=== PATIENT | female | born 1990 | race African-American/Black ===

== ENCOUNTER 2016-08-23 09:55 | Emergency (ER) | payer MEDICAID ==
[2016-08-23] MEDS ORDERED: ACETAMINOPHEN 325 MG TABLET PO ONE (13:03)
--- NOTE | 2016-08-23 13:04 | ER Document Report ---
ED General - General Chief Complaint: Abdominal Pain Stated Complaint: ABDOMINAL PAIN Notes: The patient is a 26-year-old female, , presents with bilateral adnexa cramping. Her last menstrual period was 6 weeks ago. She does not know she is . In addition, she is having bilateral lower foot pain for the past day. She denies vaginal bleeding, vaginal discharge, dysuria, flank pain, nausea, vomiting, rash or leg swelling. TRAVEL OUTSIDE OF THE [place] IN LAST 30 DAYS: No - Related Data Allergies/Adverse Reactions: peanut butter Allergy (Intermediate, Uncoded 08/23/16 09:58) Facial swelling tomato sauce Allergy (Intermediate, Uncoded 08/23/16 09:58) tonsil swelling Past Medical History - General Information source: Patient - Social History Smoking Status: Current Every Day Smoker Chew tobacco use (# tins/day): No Frequency of alcohol use: None Drug Abuse: None Family History: CAD, CVA, Hyperlipidemia, Hypertension Patient has suicidal ideation: No Patient has homicidal ideation: No - Past Medical History Cardiac Medical History: Reports: Hx Hypertension Renal/ Medical History: Denies: Hx Peritoneal Dialysis Psychiatric Medical History: Reports: Hx Depression Past Surgical History: Reports: Hx Section, Hx Tubal Ligation - Immunizations Immunizations up to date: Yes Hx Diphtheria, Pertussis, Tetanus Vaccination: Yes - 03/29/13 Review of Systems - Review of Systems Notes: REVIEW OF SYSTEMS: CONSTITUTIONAL: -fevers, -chills EENT: -eye pain, -difficulty swallowing, -nasal congestion CARDIOVASCULAR:-chest pain, -syncope. RESPIRATORY: -cough, -SOB GASTROINTESTINAL: -abdominal pain, - nausea, -vomiting, -diarrhea GENITOURINARY: +b/l adenxa pain, -dysuria, -hematuria MUSCULOSKELETAL: -back pain, -neck pain SKIN: -rash or skin lesions. HEMATOLOGIC: -easy bruising or bleeding. LYMPHATIC: -swollen, enlarged glands. NEUROLOGICAL: -altered mental status or loss of consciousness, -headache, - neurologic symptoms PSYCHIATRIC: -anxiety, -depression. ALL OTHER SYSTEMS REVIEWED AND NEGATIVE. Physical Exam - Vital signs Vitals: Temp Pulse Resp BP Pulse Ox 99.9 F 120 H 16 152/114 H 100 08/23/16 09:59 08/23/16 09:59 08/23/16 09:59 08/23/16 09:59 08/23/16 09:59 - Notes Notes: PHYSICAL EXAMINATION: GENERAL: Well-appearing, well-nourished and in no acute distress. HEAD: Atraumatic, normocephalic. EYES: Pupils equal round and reactive to light, extraocular movements intact, sclera anicteric, conjunctiva are normal. ENT: nares patent, oropharynx clear without exudates. Moist mucous membranes. NECK: Normal range of motion, supple without lymphadenopathy LUNGS: Breath sounds clear to auscultation bilaterally and equal. No wheezes rales or rhonchi. HEART: Regular rate and rhythm without murmurs ABDOMEN: Soft, nontender, normoactive bowel sounds. No guarding, no rebound. No masses appreciated. EXTREMITIES: Normal range of motion, no pitting or edema. No cyanosis. NEUROLOGICAL: Cranial nerves grossly intact. Normal speech, normal gait. Normal sensory, motor, and reflex exams. PSYCH: Normal mood, normal affect. SKIN: Warm, Dry, normal turgor, no rashes or lesions noted. Course - Re-evaluation Re-evalutation: Initial concern for ovarian torsion or ectopic when patient says that she was having bilateral adnexa cramping. Her symptoms quickly resolved after Tylenol and ultrasound does not show any evidence of left ovarian torsion. Right ovary was unable to be visualized, but her symptoms are no longer present. She is not and urinalysis does not show any evidence of UTI. Told her to follow-up with gynecology. Told her to continue Motrin and Tylenol for any cramping. Repeat abdominal exam is completely nontender. Her tachycardia resolved and she is 90 sinus rhythm on discharge. Given strict return precautions and she understands. - Vital Signs Vital signs: Temp Pulse Resp BP Pulse Ox 98.3 F 97 23 H 130/81 H 98 08/23/16 15:14 08/23/16 15:14 08/23/16 15:14 08/23/16 15:14 08/23/16 15:14 - Laboratory Laboratory results interpreted by me: 08/23/16 13:20 Urine Protein 30 H Urine Blood MODERATE H Urine Ascorbic Acid 40 H Discharge - Discharge Clinical Impression: Pelvic pain Condition: Good Disposition: HOME, SELF-CARE Additional Instructions: ABDOMINAL PAIN: There are many causes of abdominal pain. Pain can mean a serious problem requiring surgery (such as appendicitis). It can also be an innocent problem that goes away on its own (such as a viral infection). Often, time must pass to determine the cause of pain. The physician does not feel that hospitalization is necessary, at present. Things may change within the next 24 hours. Call the doctor or come back for re- examination if any problems occur, such as: (1) Pain that becomes more severe, steady, or becomes concentrated in one specific area. Also, pain that is more severe with movement or coughing. (2) Vomiting that persists or becomes more frequent. (3) Blood in the vomitus, urine, or bowel movements. Blood in the stool may have a tarry or black appearance. (4) Shaking chills or fever greater than 100 degrees F. (5) The abdomen becomes more distended or swollen. (6) Bowel movements cease. (7) Failure to improve as expected. NORMAL EXAM AND WORKUP: At this time, your examination and workup show no significant abnormality. No significant abnormal physical findings are noted. All laboratory, EKG, and imaging (x-ray, CT scans, ultrasound) studies that were ordered show no significant abnormality. Although your examination and all studies that were ordered showed no significant abnormal finding, there are no examinations and no studies that are 100% accurate. There is always the possibility that some abnormality could exist and not be detected with physical examination or within the limits and capabilities of laboratory and other studies. You should return or follow up as you were instructed on your visit today for further evaluation if your symptoms do not resolve. FOLLOW-UP CARE: If you have been referred to a physician for follow-up care, call the physician s office for an appointment as you were instructed or within the next two days. If you experience worsening or a significant change in your symptoms, notify the physician immediately or return to the Emergency Department at any time for re-evaluation. Referrals: KELLY MARTINEZ MD [Primary Care Provider] - Follow up as needed MICHELLE COWAN MD [ACTIVE STAFF] - Follow up as needed
[2016-08-23 13:41] LABS: APPEARANCE,URINE SLIGHTLY-CLOUDY; BILIRUBIN,URINE NEGATIVE (NEGATIVE); GLUCOSE, URINE NEGATIVE (NEGATIVE); KETONES,URINE NEGATIVE (NEGATIVE); LEUKOCYTE ESTERASE,URINE NEGATIVE (NEGATIVE); NITRITE,URINE NEGATIVE (NEGATIVE); PROTEIN,URINE 30 mg/dL (NEGATIVE); URINE SPECIFIC GRAVITY 1.023; UROBILINOGEN,URINE NEGATIVE mg/dL (<2.0)
[2016-08-23 15:16] VITALS: BP 130/81
== END 2016-08-23 15:28 | disposition home or self-care (01) ==
LOC: ER 09:55
DX: R10.2 Pelvic and perineal pain (principal); M79.671 Pain in right foot; M79.672 Pain in left foot; I10 Essential (primary) hypertension; F17.200 Nicotine dependence, unspecified, uncomplicated; Z91.010 Allergy to peanuts; Z91.018 Allergy to other foods
CPT/HCPCS: 99284; 81025; 81001; 76830; 93976; J3490

== ENCOUNTER 2016-12-23 16:46 | Emergency (ER) | payer MEDICAID ==
--- NOTE | 2016-12-23 18:06 | ER Document Report ---
HPI - HPI Patient complains to provider of: Sore throat Onset: Yesterday Onset/Duration: Gradual Pain Level: 5 Context: 26-year-old obese female complaining of sore throat with odynophagia. No fever. No runny nose or cough. No abdominal pain. Associated Symptoms: None Exacerbated by: Other - Swallowing Relieved by: Denies - ROS ROS below otherwise negative: Yes Systems Reviewed and Negative: Yes All other systems reviewed and negative - REPRODUCTIVE Reproductive: DENIES: : - DERM Skin Color: Normal Past Medical History - General Information source: Patient - Social History Smoking Status: Unknown if Ever Smoked Frequency of alcohol use: None Drug Abuse: None Lives with: Spouse/Significant other Family History: CAD, CVA, Hyperlipidemia, Hypertension Patient has suicidal ideation: No Patient has homicidal ideation: No - Past Medical History Cardiac Medical History: Reports: Hx Hypertension - Does not want to take medication Renal/ Medical History: Denies: Hx Peritoneal Dialysis Psychiatric Medical History: Reports: Hx Depression Past Surgical History: Reports: Hx Section, Hx Tubal Ligation - Immunizations Immunizations up to date: Yes Hx Diphtheria, Pertussis, Tetanus Vaccination: Yes - 03/29/13 Vertical Provider Document - CONSTITUTIONAL Agree With Documented VS: No - [facility] Exam Limitations: No Limitations General Appearance: No Apparent Distress Notes: hypertensive blood pressure readning with mild tachycardia at [facility]. - INFECTION CONTROL TRAVEL OUTSIDE OF THE [place] IN LAST 30 DAYS: No - HEENT HEENT: Normocephalic, Pharyngeal Erythema - Very minimal. negative: Conjuctival Injection, Tympanic Membrane Red - NECK Neck: Supple. negative: Lymphadenopathy-Left, Lymphadenopathy-Right - RESPIRATORY Respiratory: Breath Sounds Normal, No Respiratory Distress O2 Sat by Pulse Oximetry: 84 - CARDIOVASCULAR Cardiovascular: Regular Rate, Regular Rhythm - GI/ABDOMEN Gastrointestinal: Abdomen Soft, Abdomen Non-Tender - NEURO Level of Consciousness: Awake, Alert, Appropriate - DERM Integumentary: Warm, Dry, No Rash Course - Re-evaluation Re-evalutation: 12/23/16 18:35 Patient does not want a test offered she did take Motrin last night for pain. She states she cannot take Tylenol because her doctor says that it may affect her blood pressure. advised To use Chloraseptic spray or throat lozenges. She will call me for the throat culture results from the rapid strep is negative. I told her we will start her on some penicillin pending the throat culture. 12/23/16 18:36 I captureed the vitals at 18:05 and it pulled up the 84% pulse ox [facility]. No one checked the pulse ox at 18:05. Will have pt see dr. kyle for repeat blood pressure checks 12/23/16 18:45 pt asking for pencillin shot instead of the pills which I agreed to. 12/23/16 18:55 no manual large cuff, dinamap with large cuff 154/108, explained to her to see dr. kyle and get back on the HCTZ which she said did not bother her like the other medications.. - Vital Signs Vital signs: Temp Pulse Resp BP Pulse Ox 98.6 F 112 H 148/105 H 84 L 12/23/16 16:50 12/23/16 16:50 12/23/16 16:50 12/23/16 16:50 Discharge - Discharge Clinical Impression: Sore throat, elevated blood pressure reading Condition: Good Disposition: HOME, SELF-CARE Instructions: Sore Throat ([facility]), Penicillins ([facility]) Additional Instructions: salt water gargles choloraseptic spray throat lozenges call me saturday after 10 am for the throat culture results [phone] Please complete the patient satisfaction survey if you get one, and return it.. If you do not receive a survey, then you can go to the [facility] website, [email or web address] and place your comments about your very good care. Thank you very much. It was a pleasure being your medical provider today. Prescriptions: Penicillin V Potassium [Penicillin Vk 500 mg Tablet] 500 mg PO QID #40 tablet Referrals: KELLY KYLE MD [Primary Care Provider] - Follow up in 3-5 days (for blood pressure recheck)
[2016-12-23] MEDS ORDERED: PENICILLIN V POTASSIUM 500 MG TABLET PO ONE (18:35)
[2016-12-23] MEDS ORDERED: PENICILLIN G BENZATHINE 1.2 MILLION UNIT/2 ML DISP.SYRIN IM ONE (18:46)
[2016-12-23 18:53] VITALS: BP 140/105
== END 2016-12-23 19:12 | disposition home or self-care (01) ==
LOC: ER 16:46
DX: J02.9 Acute pharyngitis, unspecified (principal); R03.0 Elevated blood-pressure reading, without diagnosis of hypertension; E66.9 Obesity, unspecified; R13.10 Dysphagia, unspecified; R00.0 Tachycardia, unspecified; Z82.49 Family history of ischemic heart disease and other diseases of the circulatory system; Z68.43 Body mass index [BMI] 50.0-59.9, adult
CPT/HCPCS: 99283; 96372; 87070; 87880; J0561

== ENCOUNTER 2017-05-08 13:25 | Emergency (ER) | payer MEDICAID ==
[2017-05-08 13:44] VITALS: BP 149/96
--- NOTE | 2017-05-08 14:11 | ER Document Report ---
ED Medical Screen (RME) - General Chief Complaint: Chest Pain Stated Complaint: CHEST PAIN Time Seen by Provider: 05/08/17 14:06 Notes: This 26-year-old female patient comes emergency room complaining of chest pain for last one half hours. It started while she is driving. His left anterior chest and sternum region. The only thing that she says makes it worse is yelling. As curfew she was yelling out in the last hour and a half and she said her children while she was in the car driving. She states she does get this pain periodically but it never lasts this long. She does not know when her last menstrual period was but her tubes were tied. She does have history of hypertension and she claims enlarged heart. She quit taking her blood pressure medications a month ago. She does have a primary care provider. I have greeted and performed a rapid initial assessment of this patient. A comprehensive ED assessment and evaluation of the patient, analysis of test results and completion of the medical decision making process will be conducted by additional ED providers. TRAVEL OUTSIDE OF THE [place] IN LAST 30 DAYS: No - Related Data Allergies/Adverse Reactions: peanut butter Allergy (Intermediate, Uncoded 08/23/16 09:58) Facial swelling tomato sauce Allergy (Intermediate, Uncoded 08/23/16 09:58) tonsil swelling Past Medical History - Past Medical History Cardiac Medical History: Reports: Hx Hypertension - Does not want to take medication Renal/ Medical History: Denies: Hx Peritoneal Dialysis Psychiatric Medical History: Reports: Hx Depression Past Surgical History: Reports: Hx Section, Hx Tubal Ligation - Immunizations Immunizations up to date: Yes Hx Diphtheria, Pertussis, Tetanus Vaccination: Yes - 03/29/13 Physical Exam - Vital signs Vitals: Temp Pulse Resp BP Pulse Ox 98.7 F 102 H 18 149/96 H 98 05/08/17 13:42 05/08/17 13:42 05/08/17 13:42 05/08/17 13:42 05/08/17 13:42 Course - Vital Signs Vital signs: Temp Pulse Resp BP Pulse Ox 98.7 F 102 H 18 149/96 H 98 05/08/17 13:42 05/08/17 13:42 05/08/17 13:42 05/08/17 13:42 05/08/17 13:42
[2017-05-08 14:33] LABS: ABSOLUTE BASOPHILS # (AUTO) 0.1 10^3/uL (0.0-0.2); ABSOLUTE EOSINOPHILS # (AUTO) 0.2 10^3/uL (0.0-0.6); ABSOLUTE LYMPHOCYTES (AUTO) 2.6 10^3/uL (0.5-4.7); ABSOLUTE MONOCYTES (AUTO) 0.7 10^3/uL (0.1-1.4); ABSOLUTE NEUT (AUTO) 7.7 10^3/uL (1.7-8.2); BASOPHILS % (AUTO) 0.6 % (0-2); EOSINOPHILS % (AUTO) 1.8 % (0-6); HEMATOCRIT 38.7 % (36.0-47.0); HEMOGLOBIN 12.6 g/dL (12.0-15.5); HGB HCT DIFFERENCE -0.9; LYMPHOCYTES % (AUTO) 23.2 % (13-45); MEAN CORPUSCULAR HEMOGLOBIN 24.8 pg (27.0-33.4); MEAN CORPUSCULAR HGB CONC 32.6 g/dL (32.0-36.0); MEAN CORPUSCULAR VOLUME 76 fl (80-97); MONOCYTES % (AUTO) 6.5 % (3-13); RED BLOOD COUNT 5.08 10^6/uL (3.72-5.28); RED CELL DISTRIBUTION WIDTH 16.1 % (11.5-14.0); SEGMENTED NEUTROPHILS % (AUTO) 67.9 % (42-78); WHITE BLOOD COUNT 11.3 10^3/uL (4.0-10.5)
[2017-05-08 14:44] LABS: APPEARANCE,URINE CLOUDY; BILIRUBIN,URINE NEGATIVE (NEGATIVE); GLUCOSE, URINE NEGATIVE (NEGATIVE); KETONES,URINE NEGATIVE (NEGATIVE); LEUKOCYTE ESTERASE,URINE NEGATIVE (NEGATIVE); NITRITE,URINE NEGATIVE (NEGATIVE); PROTEIN,URINE NEGATIVE (NEGATIVE); UROBILINOGEN,URINE NEGATIVE mg/dL (<2.0)
[2017-05-08 14:54] LABS: ALANINE AMINOTRANSFERASE 32 U/L (9-52); ALBUMIN 4.1 g/dL (3.5-5.0); ALKALINE PHOSPHATASE 137 U/L (38-126); ANION GAP 11 (5-19); ASPARTATE AMINO TRANSFERASE 19 U/L (14-36); BILIRUBIN,DIRECT 0.3 mg/dL (0.0-0.4); BILIRUBIN,TOTAL 0.3 mg/dL (0.2-1.3); BLOOD UREA NITROGEN 11 mg/dL (7-20); CALCIUM 9.4 mg/dL (8.4-10.2); CARBON DIOXIDE 27 mmol/L (22-30); CHLORIDE 105 mmol/L (98-107); CREATININE RESULT 0.74 mg/dL (0.52-1.25); GLUCOSE 81 mg/dL (75-110); POTASSIUM 4.4 mmol/L (3.6-5.0); SODIUM 142.9 mmol/L (137-145); TOTAL PROTEIN 7.2 g/dL (6.3-8.2)
[2017-05-08 15:09] LABS: BACTERIA,URINE 2+ /HPF
--- NOTE | 2017-05-08 15:16 | ER Document Report ---
ED Cardiac - General Chief Complaint: Chest Pain Stated Complaint: CHEST PAIN Time Seen by Provider: 05/08/17 14:06 Notes: The patient is a 26-year-old female, past medical history hypertension (not taking her HCTZ), presents with 1 day of sternal chest pain that is worse when she yells at her kids. She has had this in the past and it resolved without any intervention. Patient said the pain is worse when she presses on her chest wall. She denies shortness of breath, hemoptysis, leg swelling, nausea, vomiting, fevers, cough, rash, headache or OCP use. TRAVEL OUTSIDE OF THE [place] IN LAST 30 DAYS: No - Related Data Allergies/Adverse Reactions: peanut butter Allergy (Intermediate, Uncoded 08/23/16 09:58) Facial swelling tomato sauce Allergy (Intermediate, Uncoded 08/23/16 09:58) tonsil swelling Past Medical History - General Information source: Patient - Social History Smoking Status: Current Every Day Smoker Chew tobacco use (# tins/day): No Frequency of alcohol use: None Drug Abuse: None Family History: CAD, CVA, Hyperlipidemia, Hypertension Patient has suicidal ideation: No Patient has homicidal ideation: No - Past Medical History Cardiac Medical History: Reports: Hx Hypertension - Does not want to take medication Renal/ Medical History: Denies: Hx Peritoneal Dialysis Psychiatric Medical History: Reports: Hx Depression Past Surgical History: Reports: Hx Section, Hx Tubal Ligation - Immunizations Immunizations up to date: Yes Hx Diphtheria, Pertussis, Tetanus Vaccination: Yes - 03/29/13 Review of Systems - Review of Systems Notes: REVIEW OF SYSTEMS: CONSTITUTIONAL: -fevers, -chills EENT: -eye pain, -difficulty swallowing, -nasal congestion CARDIOVASCULAR: +chest pain, -syncope. RESPIRATORY: -cough, -SOB GASTROINTESTINAL: -abdominal pain, -nausea, -vomiting, -diarrhea GENITOURINARY: -dysuria, -hematuria MUSCULOSKELETAL: -back pain, -neck pain SKIN: -rash or skin lesions. HEMATOLOGIC: -easy bruising or bleeding. LYMPHATIC: -swollen, enlarged glands. NEUROLOGICAL: -altered mental status or loss of consciousness, -headache, - neurologic symptoms PSYCHIATRIC: -anxiety, -depression. ALL OTHER SYSTEMS REVIEWED AND NEGATIVE. Physical Exam - Vital signs Vitals: Temp Pulse Resp BP Pulse Ox 98.7 F 102 H 18 149/96 H 98 05/08/17 13:42 05/08/17 13:42 05/08/17 13:42 05/08/17 13:42 05/08/17 13:42 - Notes Notes: PHYSICAL EXAMINATION: GENERAL: Well-appearing, well-nourished and in no acute distress. HEAD: Atraumatic, normocephalic. EYES: Pupils equal round and reactive to light, extraocular movements intact, sclera anicteric, conjunctiva are normal. ENT: nares patent, oropharynx clear without exudates. Moist mucous membranes. NECK: Normal range of motion, supple without lymphadenopathy LUNGS: Breath sounds clear to auscultation bilaterally and equal. No wheezes rales or rhonchi. HEART: Regular rate and rhythm without murmurs. Tenderness over mid-sternum. ABDOMEN: Soft, nontender, normoactive bowel sounds. No guarding, no rebound. No masses appreciated. EXTREMITIES: Normal range of motion, no pitting or edema. No cyanosis. NEUROLOGICAL: Cranial nerves grossly intact. Normal speech, normal gait. Normal sensory and motor exams. PSYCH: Normal mood, normal affect. SKIN: Warm, Dry, normal turgor, no rashes or lesions noted. Course - Re-evaluation Re-evalutation: Patient appears well. Troponin, EKG and rest of blood work are unremarkable. She is low risk for DVT, so d-dimer sent because of initial tachycardia. This is also negative. She has an appointment with Dr. Martinez tomorrow morning and will follow-up. Her HEART score is 2. - Vital Signs Vital signs: Temp Pulse Resp BP Pulse Ox 98.7 F 102 H 18 149/96 H 98 05/08/17 13:42 05/08/17 13:42 05/08/17 13:42 05/08/17 13:42 05/08/17 13:42 - Laboratory Result Diagrams: 05/08/17 14:20 05/08/17 14:20 Laboratory results interpreted by me: 05/08/17 05/08/17 05/08/17 14:20 14:20 14:20 WBC 11.3 H MCV 76 L MCH 24.8 L RDW 16.1 H Alkaline Phosphatase 137 H Urine Ascorbic Acid 40 H - Diagnostic Test Radiology reviewed: Image reviewed, Reports reviewed Radiology results interpreted by me: CXR: NAD - EKG Interpretation by Me EKG shows normal: Sinus rhythm, [place], Intervals, QRS Complexes, ST-T Waves Rate: Tachycardia - HR 100 Discharge - Discharge Clinical Impression: Chest pain Qualifiers: Chest pain type: unspecified Qualified Code(s): R07.9 - Chest pain, unspecified Condition: Stable Disposition: HOME, SELF-CARE Additional Instructions: Follow-up with your primary care physician tomorrow for further evaluation and treatment. CHEST PAIN OF UNCLEAR CAUSE: The exact cause of your chest pain isn't clear. Fortunately, there is no evidence of a dangerous medical condition. Further testing may be required to find the source of the pain. Most often, we find that this pain is coming from the chest wall -- the muscles or rib joints in the chest. But chest pain can come from the lung and lung lining, the esophagus, the heart valves or heart lining, and even the stomach or gallbladder. Rest. Eat lightly until the pain is gone. We may prescribe medicine for pain and inflammation. You should call the physician immediately if the pain radiates to the shoulder, jaw or arms; if you start to run a fever or develop a cough; or if you develop shortness of breath, or other new or alarming symptoms. NORMAL EXAM AND WORKUP: At this time, your examination and workup show no significant abnormality. No significant abnormal physical findings were noted. All laboratory, EKG, and imaging (x-ray, CT scans, ultrasound) studies that were ordered show no significant abnormality. Although your examination and all studies that were ordered showed no significant abnormal finding, there are no examinations and no studies that are 100% accurate. There is always the possibility that some abnormality could exist and not be detected with physical examination or within the limits and capabilities of laboratory and other studies. You should return or follow up as you were instructed on your visit today for further evaluation if your symptoms do not resolve. CHEST WALL PAIN: Your chest pain may be coming from the chest wall. This is often caused by straining the muscles or joints in the chest during physical activity, direct trauma, coughing, or vigorous vomiting. Persons with arthritis are especially prone to this type of pain, due to inflammation of the cartilage joints near the breast bone. Occasionally, no cause can be found. Rest from strenuous physical activity. This kind of chest pain is usually made worse by movement of the chest. Depending on the symptoms, we may prescribe medicine for pain, muscle relaxation, and antiinflammatory effects. If the pain is new, and seems to be due to muscle strain, cold packs can help. Otherwise, apply gentle warmth to the painful area for 15 minutes every hour or two. You should call contact the doctor immediately if things change. Further evaluation is needed if you develop a fever or cough, if the nature of the pain changes, or if you become short of breath. ANGINA EPISODE: Your physician has diagnosed the pain you experienced as an episode of angina. Angina occurs when a portion of the heart muscle temporarily lacks oxygen. It does not cause any permanent heart damage, but serves as a warning. Hospitalization is not necessary now. Evaluation of your cardiac condition , and medical therapy for angina will be necessary. It's important you be sure to keep all appointments and take medication exactly as prescribed. Angina is usually treated with a type of "nitrate" medication. This is available as ointment, pills, or sublingual (under the tongue) tablets. Depending on your clinical situation, other medications may be added to help control angina. These may include beta blockers or calcium blockers. If episodes of angina are occurring with increased frequency, or if chest pain lasts longer than 15 minutes or does not respond to nitroglycerin, you must seek emergency medical care immediately. ACID REFLUX DISEASE (GERD): Gastro-Esophageal Reflux Disease (GERD) is caused by stomach acid refluxing back up into the esophagus. The valve at the end of the esophagus may be weak. This is common in persons with a hiatal hernia. GERD symptoms can include indigestion, chest pain, heartburn, or food "sticking." Certain foods, alcohol, and aspirin can make GERD worse. Treatment depends on the severity. Usually, antacids or acid-suppressing medicines are used. When the esophagus is acutely inflamed, the physician will often prescribe membrane-protective drugs such as Carafate. Some patients benefit from medication such as Reglan that tightens the valve at the top of the stomach. Avoid those foods that bring on your symptoms. For many people, these foods are coffee, chocolate, onions, garlic, and carbonated drinks. Don't use alcohol, aspirin, caffeine, or tobacco. Don't eat late at night -- within 4 hours of bedtime. Don't over-eat. If necessary, elevate the head of your bed about 4 inches so that stomach acid will not roll up into your esophagus. Call the doctor if you develop severe chest pain, inability to swallow fluids, fever, or worsening symptoms. FOLLOW-UP CARE: If you have been referred to a physician for follow-up care, call the physician s office for an appointment as you were instructed or within the next two days. If you experience worsening or a significant change in your symptoms, notify the physician immediately or return to the Emergency Department at any time for re-evaluation. Forms: Elevated Blood Pressure Referrals: KELLY MARTINEZ MD [Primary Care Provider] - Follow up as needed
--- NOTE | 2017-05-08 15:53 | RADIOLOGY REPORT (SQ) ---
EXAM DESCRIPTION: CHEST PA/LAT COMPLETED DATE/TIME: 05/08/2017 3:38 pm REASON FOR STUDY: chest pain COMPARISON: 03/29/2016 EXAM PARAMETERS: NUMBER OF VIEWS: two views TECHNIQUE: Digital Frontal and Lateral radiographic views of the chest acquired. RADIATION DOSE: NA LIMITATIONS: none FINDINGS: LUNGS AND PLEURA: No opacities, masses or pneumothorax. No pleural effusion. MEDIASTINUM AND HILAR STRUCTURES: No masses or contour abnormalities. HEART AND VASCULAR STRUCTURES: Heart normal size. No evidence for failure. BONES: No acute findings. HARDWARE: None in the chest. OTHER: No other significant finding. IMPRESSION: NO SIGNIFICANT RADIOGRAPHIC FINDING IN THE CHEST. TECHNICAL DOCUMENTATION: JOB ID: [id number] [employer]- All Rights Reserved
--- NOTE | 2017-05-09 09:23 | EKG REPORT ---
SEVERITY:- BORDERLINE ECG - SINUS TACHYCARDIA BORDERLINE T WAVE ABNORMALITIES : Confirmed by: Cesar Kaur 09-May-2017 09:22:54
== END 2017-05-08 18:12 | disposition home or self-care (01) ==
LOC: ER 13:25
DX: R07.9 Chest pain, unspecified (principal); R00.0 Tachycardia, unspecified; I10 Essential (primary) hypertension; T50.2X6A Underdosing of carbonic-anhydrase inhibitors, benzothiadiazides and other diuretics, initial encounter; Z91.128 Patient's intentional underdosing of medication regimen for other reason; Z91.14 Patient's other noncompliance with medication regimen; F17.200 Nicotine dependence, unspecified, uncomplicated; Z91.010 Allergy to peanuts; Z91.018 Allergy to other foods; Z82.49 Family history of ischemic heart disease and other diseases of the circulatory system
CPT/HCPCS: 36415; 71020; 80053; 81001; 82550; 84484; 84703; 85025; 85379; 93005; 93010; 99285

== ENCOUNTER 2017-06-19 06:15 | Emergency (ER) | payer MEDICAID ==
[2017-06-19 06:24] VITALS: BP 161/95
[2017-06-19] MEDS ORDERED: DIPHENHYDRAMINE HCL 50 MG CAPSULE PO ONE (06:34)
[2017-06-19] MEDS ORDERED: DEXAMETHASONE 4 MG TABLET PO ONE (06:39)
--- NOTE | 2017-06-19 06:44 | ER Document Report ---
ED Skin Rash/Insect Bite/Abscs - General Chief Complaint: Itching Stated Complaint: ITCHING Time Seen by Provider: 06/19/17 06:32 Notes: The patient is a 27-year-old female, past medical history hypertension, presents with 12 hours of a diffuse pruritic rash. She said her doctor told her not to take any medications, so she did not take Benadryl. Patient denies new soaps, new detergents, new medications or new foods. She denies difficulty swallowing, wheezing, nausea, vomiting, fevers or tongue swelling. TRAVEL OUTSIDE OF THE [place] IN LAST 30 DAYS: No - Related Data Allergies/Adverse Reactions: peanut butter Allergy (Intermediate, Uncoded 08/23/16 09:58) Facial swelling tomato sauce Allergy (Intermediate, Uncoded 08/23/16 09:58) tonsil swelling Past Medical History - General Information source: Patient - Social History Smoking Status: Unknown if Ever Smoked Family History: CAD, CVA, Hyperlipidemia, Hypertension - Past Medical History Cardiac Medical History: Reports: Hx Hypertension - Does not want to take medication Renal/ Medical History: Denies: Hx Peritoneal Dialysis Psychiatric Medical History: Reports: Hx Depression Past Surgical History: Reports: Hx Section, Hx Tubal Ligation - Immunizations Immunizations up to date: Yes Hx Diphtheria, Pertussis, Tetanus Vaccination: Yes - 03/29/13 Review of Systems - Review of Systems Notes: REVIEW OF SYSTEMS: CONSTITUTIONAL: -fevers, -chills EENT: -eye pain, -difficulty swallowing, -nasal congestion CARDIOVASCULAR: -chest pain, -syncope. RESPIRATORY: -cough, -SOB GASTROINTESTINAL: -abdominal pain, -nausea, -vomiting, -diarrhea GENITOURINARY: -dysuria, -hematuria MUSCULOSKELETAL: -back pain, -neck pain SKIN: +pruritic rash HEMATOLOGIC: -easy bruising or bleeding. LYMPHATIC: -swollen, enlarged glands. NEUROLOGICAL: -altered mental status or loss of consciousness, -headache, - neurologic symptoms PSYCHIATRIC: -anxiety, -depression. ALL OTHER SYSTEMS REVIEWED AND NEGATIVE. Physical Exam - Vital signs Vitals: Temp Pulse Resp BP Pulse Ox 98.5 F 102 H 20 161/95 H 98 06/19/17 06:23 06/19/17 06:23 06/19/17 06:23 06/19/17 06:23 06/19/17 06:23 - Notes Notes: PHYSICAL EXAMINATION: GENERAL: Well-appearing, well-nourished and in no acute distress. HEAD: Atraumatic, normocephalic. EYES: Pupils equal round and reactive to light, extraocular movements intact, sclera anicteric, conjunctiva are normal. ENT: nares patent, oropharynx clear without exudates. Moist mucous membranes. NECK: Normal range of motion, supple without lymphadenopathy LUNGS: Breath sounds clear to auscultation bilaterally and equal. No wheezes rales or rhonchi. HEART: Regular rate and rhythm without murmurs ABDOMEN: Soft, nontender, normoactive bowel sounds. No guarding, no rebound. No masses appreciated. EXTREMITIES: Normal range of motion, no pitting or edema. No cyanosis. NEUROLOGICAL: Cranial nerves grossly intact. Normal speech, normal gait. Normal sensory and motor exams. PSYCH: Normal mood, normal affect. SKIN: Diffuse pruritic urticarial rash on legs and back. Course - Re-evaluation Re-evalutation: Patient has no signs of anaphylaxis at this time. Unsure what is causing her pruritus as she has not had any new triggers. We will treat her with dose of Decadron and Benadryl to help control her symptoms with follow-up at her primary care physician. Given strict return precautions and she understands. - Vital Signs Vital signs: Temp Pulse Resp BP Pulse Ox 98.5 F 102 H 20 161/95 H 98 06/19/17 06:23 06/19/17 06:23 06/19/17 06:23 06/19/17 06:23 06/19/17 06:23 Discharge - Discharge Clinical Impression: Urticaria Condition: Stable Disposition: HOME, SELF-CARE Additional Instructions: ACUTE ALLERGIC REACTION: Your symptoms are due to an allergic reaction. Allergy can cause hives, swelling of the hands, feet, and face, hoarseness, and difficulty swallowing or breathing. It may be due to exposure to medication, animal dander, foods, infection, or insect bites. Medication is a common cause, even when prior use of this same medication caused no problems. Acute treatment may include adrenalin and antihistamines. Usually, the specific allergic agent can't be identified unless repeated episodes occur. Home treatment includes the following: (1) Stop any suspicious medications. This will be discussed with you. (2) Oral antihistamines for the next four to five days. Example, diphenhydramine (Benadryl) every four hours. (3) You may also use cimetidine (Tagamet), ranitidine (Zantac), or famotidine ( Pepcid) every four hours if diphenhydramine is not controlling itching and hives. (4) Avoid aspirin until the hives completely disappear. (5) Avoid hot baths or showers until the hives are completely gone. Call the doctor if faintness, difficulty swallowing, tightness in the chest , or wheezing occurs. STEROID MEDICATION: You have been given a medicine of the cortisone/steroid class. This medication is used to control inflammation or allergy. It is usually only given for a short period of time, until the acute process subsides. There are usually no side effects from short-term use of cortisone-like medications. Some persons feel an increased sense of well-being and are not sleepy at bedtime. Long-term use of cortisone medications is best avoided, unless required for a severe condition. If your condition does not remit, or relapses after the course of corticosteroid medication, you should consult your physician. ANTIHISTAMINES: An antihistamine has been given and/or prescribed to control your symptoms. Antihistamines are used for many reasons, including itching, watering eyes, runny nose, allergic swelling, hives, and insect stings. Antihistamines may cause drowsiness, especially with the first dose. Do not operate machinery or drive while under the effects of the medication. Other common side effects include dry mouth and eyes. In older persons, antihistamines can occasionally cause urinary retention, constipation, and trouble focusing the eyes. Do not combine the medication with alcohol, or with any other medication without talking to your doctor. USE OF DIPHENHYDRAMINE: The use of diphenhydramine (Benadryl) has been recommended to control allergic symptoms. The 25 mg strength is available over- the-counter, as well as the elixir. This antihistamine is used for many symptoms. It's useful for itching, watering eyes and nose, allergic swelling, hives, and insect stings. The medication can be repeated four times daily. Age Elixir (12.5 mg/tsp) 25 mg pill 2-3 yr 1/2 tsp 4-8 yr 1 tsp 9-14 yr 2 tsp one tab adult 1-2 tabs Antihistamines may cause drowsiness, especially with the first dose. Do not operate machinery or drive while under the effects of the medication. Do not combine the medication with alcohol, or with any other medication without talking to your doctor. FOLLOW-UP CARE: If you have been referred to a physician for follow-up care, call the physician s office for an appointment as you were instructed or within the next two days. If you experience worsening or a significant change in your symptoms, notify the physician immediately or return to the Emergency Department at any time for re-evaluation. Forms: Elevated Blood Pressure
== END 2017-06-19 06:50 | disposition home or self-care (01) ==
LOC: ER 06:15
DX: L50.9 Urticaria, unspecified (principal); L29.9 Pruritus, unspecified; I10 Essential (primary) hypertension
CPT/HCPCS: 99282; J3490 ×2

== ENCOUNTER 2017-07-14 23:40 | Emergency (ER) | payer MEDICAID ==
[2017-07-15] MEDS ORDERED: HYDROCODONE/ACETAMINOPHEN 5-325 MG (6 TAB/ER DISP) PO PRN (00:28)
[2017-07-15] MEDS ORDERED: HYDROCODONE/ACETAMINOPHEN 5-325 MG TABLET PO ONE (00:28)
--- NOTE | 2017-07-15 00:28 | ER Document Report ---
ED Oral Problem - General Chief Complaint: Toothache Stated Complaint: MOUTH PAIN Time Seen by Provider: 07/15/17 00:11 Mode of Arrival: Ambulatory Information source: Patient Notes: Patient is a 27-year-old female who presents to the ER today for right upper and lower tooth pain 2 days. Patient states that she has not dentist appointment but it is not until 08 August. She admits to swelling to the area but denies any drainage, fever, chills. TRAVEL OUTSIDE OF THE [place] IN LAST 30 DAYS: No - Related Data Allergies/Adverse Reactions: peanut butter Allergy (Intermediate, Uncoded 08/23/16 09:58) Facial swelling tomato sauce Allergy (Intermediate, Uncoded 08/23/16 09:58) tonsil swelling Past Medical History - General Information source: Patient - Social History Smoking Status: Never Smoker Family History: CAD, CVA, Hyperlipidemia, Hypertension - Past Medical History Cardiac Medical History: Reports: Hx Hypertension - Does not want to take medication Renal/ Medical History: Denies: Hx Peritoneal Dialysis Psychiatric Medical History: Reports: Hx Depression Past Surgical History: Reports: Hx Section, Hx Tubal Ligation - Immunizations Immunizations up to date: Yes Hx Diphtheria, Pertussis, Tetanus Vaccination: Yes - 03/29/13 Review of Systems - Review of Systems Constitutional: No symptoms reported EENT: See HPI Cardiovascular: No symptoms reported Respiratory: No symptoms reported Gastrointestinal: No symptoms reported Genitourinary: No symptoms reported Female Genitourinary: No symptoms reported Musculoskeletal: No symptoms reported Skin: No symptoms reported Hematologic/Lymphatic: No symptoms reported Neurological/Psychological: No symptoms reported Physical Exam - Notes Notes: PHYSICAL EXAMINATION: GENERAL: Uncomfortable appearing, but in no acute distress. HEAD: Atraumatic, normocephalic. EYES: Pupils equal round and reactive to light, extraocular movements intact, sclera anicteric, conjunctiva are normal. ENT: ear canals without erythema or foreign body, TMs pearly nicholson with good bony landmarks, nares patent, oropharynx clear without exudates. Moist mucous membranes. Poor dentition, tender over tooth #3 and 30, no obvious abscess NECK: Normal range of motion, supple without lymphadenopathy LUNGS: CTAB and equal. No wheezes rales or rhonchi. HEART: Regular rate and rhythm without murmurs EXTREMITIES: Normal range of motion, no pitting edema. No cyanosis. NEUROLOGICAL: Cranial nerves grossly intact. Normal sensory/motor exams. PSYCH: Normal mood, normal affect. SKIN: Warm, Dry, normal turgor, no rashes or lesions noted Discharge - Discharge Clinical Impression: Pain, dental Condition: Stable Disposition: HOME, SELF-CARE Additional Instructions: Return immediately for any new or worsening symptoms. Follow up with dentist, call tomorrow to make followup appointment. Prescriptions: Amoxicillin 1 tab PO TID #30 tab Forms: Return to Work Referrals: KELLY MARTINEZ MD [Primary Care Provider] - Follow up as needed
[2017-07-15 02:34] VITALS: BP 192/118
== END 2017-07-15 01:02 | disposition home or self-care (01) ==
LOC: ER 23:40
DX: K08.89 Other specified disorders of teeth and supporting structures (principal); I10 Essential (primary) hypertension; Z91.018 Allergy to other foods
CPT/HCPCS: 99282

== ENCOUNTER 2017-08-25 21:58 | Emergency (ER) | payer MEDICAID ==
[2017-08-25] MEDS ORDERED: METOCLOPRAMIDE HCL INJ/PF 10 MG/2 ML SDV IV ONE (23:32)
[2017-08-25] MEDS ORDERED: DIPHENHYDRAMINE HCL 50 MG/ML VIAL IV ONE (23:32)
--- NOTE | 2017-08-25 23:35 | ER Document Report ---
ED General - General Chief Complaint: Headache Stated Complaint: HEADACHE Time Seen by Provider: 08/25/17 23:25 Notes: Patient is a 27-year-old female presents with complaint of headache for 3 days. Says started Saturday while watching a movie. Has been continuous and unchanged since that time. She says that during this time her blood pressure has been running high. She does take medications for high blood pressure. She takes amlodipine 10 mg a day as well as hydrochlorothiazide 25 mg a day. She says these medications have not been recently changed. She says her doctor did prescribe her a new medication on Saturday because of her high blood pressure and headache but she has not filled the prescription yet and does not remember the name of this medication. She denies any focal weakness or numbness. She said she had slight blurred vision in her right eye yesterday but that has since resolved. She denies any facial droop. She denies any recent fevers or infections. She said since arriving to the ER she does have a mild intermittent chest pain that is over the lower portion of the chest. No associated difficulty breathing or sweating. No history of coronary disease. TRAVEL OUTSIDE OF THE [place] IN LAST 30 DAYS: No - Related Data Allergies/Adverse Reactions: peanut butter Allergy (Intermediate, Uncoded 08/25/17 22:02) Facial swelling tomato sauce Allergy (Intermediate, Uncoded 08/25/17 22:02) tonsil swelling Past Medical History - Social History Smoking Status: Never Smoker Frequency of alcohol use: None Drug Abuse: None Family History: CAD, CVA, Hyperlipidemia, Hypertension - Past Medical History Cardiac Medical History: Reports: Hx Hypertension - Does not want to take medication Renal/ Medical History: Denies: Hx Peritoneal Dialysis Psychiatric Medical History: Reports: Hx Depression Past Surgical History: Reports: Hx Section, Hx Tubal Ligation - Immunizations Immunizations up to date: Yes Hx Diphtheria, Pertussis, Tetanus Vaccination: Yes - 03/29/13 Review of Systems - Review of Systems Notes: My Normal Review Basic REVIEW OF SYSTEMS: CONSTITUTIONAL : Denies fever, chills, or sweats. Denies recent illness. EENT: Denies eye, ear, throat, or mouth pain or symptoms. Denies nasal or sinus congestion. CARDIOVASCULAR: Has chest pain. RESPIRATORY: Denies cough, cold, or chest congestion. Denies shortness of breath, difficulty breathing, or wheezing. GASTROINTESTINAL: Denies abdominal pain. Denies nausea, vomiting, or diarrhea. MUSCULOSKELETAL: Denies neck or back pain or joint pain or swelling. SKIN: Denies rash or skin lesions. NEUROLOGICAL: Denies altered mental status or loss of consciousness. Has a headache. Denies weakness or paralysis or loss of use of either side. Denies problems with gait or speech. Denies sensory or motor loss. ALL OTHER SYSTEMS REVIEWED AND NEGATIVE. Physical Exam - Vital signs Vitals: Temp Pulse BP Pulse Ox 98.1 F 100 170/111 H 98 08/25/17 22:25 08/25/17 22:25 08/25/17 22:25 08/25/17 22:25 - Notes Notes: General Appearance: Well nourished, alert, cooperative, no acute distress, no obvious discomfort. Well-appearing. Patient is smiling and interactive on exam. Clinically she does not appear to be in much discomfort despite having the headache. Vitals: reviewed, See vital signs table. Head: no swelling or tenderness to the head Eyes: PERRL, EOMI, Conjuctiva clear Mouth: No decreasd moisture Throat: No tonsillar inflammation, No airway obstruction, No lymphadenopathy Neck: Supple, no neck tenderness, Lungs: No wheezing, No rales, No rhonci, No accessory muscle use, good air exchange bilaterally. Heart: Normal rate, Regular rythm, No murmur, no rub Abdomen: Normal BS, soft, No rigidity, No abdominal tenderness, No guarding, no rebound, no abdominal masses, no organomegaly Extremities: strength 5/5 in all extremities, good pulses in all extremities, no swelling or tenderness in the extremities, no edema. Skin: warm, dry, appropriate color, no rash Neuro: speech clear, oriented x 3, normal affect, responds appropriately to questions. Renal nerves II through XII are intact. Distal sensation intact. Patient moves all extremities without difficulty. Course - Re-evaluation Re-evalutation: 08/26/17 00:49 Patient is still hypertensive. She still has a bit of a headache. She says her head just feels "heavy". She says it is not very painful right now it is just a heaviness type feeling. She did not want Benadryl as she says it makes her sleep for long periods of time. Her laboratory evaluation is unremarkable except for her troponin is not yet back. I informed her that I think a subarachnoid hemorrhage or aneurysm of her brain is much less likely the cause; however, she has had worsening hypertension with onset of a headache and I do not have another reason other than may be just worsening hypertension. I informed her that I recommend CT of her head. I informed her that this would help rule out a cerebral aneurysm or AV malformation which could be life- threatening thinning. Patient shows understanding of this but she refuses to stay for any further testing. She says she will come back immediately if she had worsening of her symptoms or was not improving. I again reiterated the severity of a cerebral aneurysm but patient shows understanding of this but still decides to leave. Patient will be discharged home but strongly encouraged her return to ER anytime for further workup, recurrent headache, worsening high blood pressure, she feels unwell. I did offer to give her a dose of lisinopril. Patient is able to find out that lisinopril was medication that was prescribed on Saturday. She says she wants to wait to start it in the morning time. She says she will follow-up closely with her doctor this week. Dictation of this chart was performed using voice recognition software; therefore, there may be some unintended grammatical errors. 08/26/17 00:51 - Vital Signs Vital signs: Temp Pulse Resp BP Pulse Ox 98.1 F 102 H 18 152/103 H 100 08/25/17 22:25 08/26/17 01:19 08/26/17 01:19 08/26/17 01:19 08/26/17 01:19 - Laboratory Result Diagrams: 08/26/17 00:15 08/26/17 00:15 Laboratory results interpreted by me: 08/26/17 08/26/17 00:15 00:15 RBC 5.29 H MCV 76 L MCH 24.6 L RDW 16.3 H AST 38 H - EKG Interpretation by Me Additional EKG results interpreted by me: 08/25/17 23:48 EKG is reviewed and interpreted by me. EKG shows sinus rhythm with a rate of [address] segment elevation or depression. No ischemic T-wave inversions. IL interval, QRS duration, QTc intervals are within normal range. Old EKG for comparison is from May 08, 2017. Discharge - Discharge Clinical Impression: Headache Qualifiers: Headache type: unspecified Headache chronicity pattern: acute headache Intractability: intractable Qualified Code(s): R51 - Headache Hypertension Qualifiers: Hypertension type: unspecified Qualified Code(s): I10 - Essential (primary) hypertension Condition: Stable Disposition: HOME, SELF-CARE Additional Instructions: As discuseed with your your headache my be related to continued hypertension. You need to start the Lisinopril as soon as you get home since you do nto want it given here. Also, headaches with high blood pressure can sometimes be related to an aneurysm in your head which requires a CT scan to hlep rule out. I recommended this being that an aneurysm is a serious and sometimes fatal condition if left untreated. We respect your decision to not want the CT scan, but we want what is best for you; therefore, we want you to return to the ER at any time for reevaluation and further treatment and workup. Please also follow up closely with your doctor this week. Referrals: KELLY MARTINEZ MD [Primary Care Provider] - Follow up tomorrow
[2017-08-26 00:28] LABS: ABSOLUTE BASOPHILS # (AUTO) 0.1 10^3/uL (0.0-0.2); ABSOLUTE EOSINOPHILS # (AUTO) 0.2 10^3/uL (0.0-0.6); ABSOLUTE LYMPHOCYTES (AUTO) 3.3 10^3/uL (0.5-4.7); ABSOLUTE MONOCYTES (AUTO) 0.5 10^3/uL (0.1-1.4); ABSOLUTE NEUT (AUTO) 5.1 10^3/uL (1.7-8.2); EOSINOPHILS % (AUTO) 1.9 % (0-6); HEMATOCRIT 40.2 % (36.0-47.0); LYMPHOCYTES % (AUTO) 35.9 % (13-45); MEAN CORPUSCULAR HEMOGLOBIN 24.6 pg (27.0-33.4); MEAN CORPUSCULAR HGB CONC 32.4 g/dL (32.0-36.0); MEAN CORPUSCULAR VOLUME 76 fl (80-97); MONOCYTES % (AUTO) 5.6 % (3-13); PLATELET COUNT 384 10^3/uL (150-450); RED BLOOD COUNT 5.29 10^6/uL (3.72-5.28); RED CELL DISTRIBUTION WIDTH 16.3 % (11.5-14.0); SEGMENTED NEUTROPHILS % (AUTO) 55.6 % (42-78); TOTAL CELLS COUNTED % (AUTO) 100 %; WHITE BLOOD COUNT 9.1 10^3/uL (4.0-10.5)
[2017-08-26 00:45] LABS: ALANINE AMINOTRANSFERASE 21 U/L (9-52); ALBUMIN 4.1 g/dL (3.5-5.0); ALKALINE PHOSPHATASE 110 U/L (38-126); ANION GAP 8 (5-19); ASPARTATE AMINO TRANSFERASE 38 U/L (14-36); BILIRUBIN,DIRECT 0.2 mg/dL (0.0-0.4); BILIRUBIN,TOTAL 0.2 mg/dL (0.2-1.3); BLOOD UREA NITROGEN 9 mg/dL (7-20); CALCIUM 9.6 mg/dL (8.4-10.2); CARBON DIOXIDE 27 mmol/L (22-30); CHLORIDE 105 mmol/L (98-107); GLUCOSE 106 mg/dL (75-110); POTASSIUM 3.9 mmol/L (3.6-5.0); SODIUM 139.5 mmol/L (137-145); TOTAL PROTEIN 7.7 g/dL (6.3-8.2)
[2017-08-26 01:20] VITALS: BP 152/103
--- NOTE | 2017-08-26 07:17 | EKG REPORT ---
SEVERITY:- BORDERLINE ECG - SINUS RHYTHM BORDERLINE T WAVE ABNORMALITIES : Confirmed by: Leonard Peralta MD 26-Aug-2017 07:17:21
== END 2017-08-26 01:20 | disposition home or self-care (01) ==
LOC: ER 21:58
DX: I10 Essential (primary) hypertension (principal); Z79.899 Other long term (current) drug therapy; R51 Headache; R07.9 Chest pain, unspecified; Z91.018 Allergy to other foods; Z82.49 Family history of ischemic heart disease and other diseases of the circulatory system; Z82.3 Family history of stroke
CPT/HCPCS: 93005; 99284; 96374; 36415; 85025; 80053; 84484; 93010; J2765

== ENCOUNTER 2017-10-08 01:13 | Emergency (ER) | payer MEDICAID ==
--- NOTE | 2017-10-08 02:09 | ER Document Report ---
HPI - HPI Patient complains to provider of: Urinary symptoms Onset: Other - 5 days Onset/Duration: Persistent Quality of pain: Burning Pain Level: 1 Context: Patient presents complaining of tingling and burning with urination for the past 5 days. Patient also reports some urinary frequency. Patient denies any fever, abdominal pain or back pain. Associated Symptoms: Other - Urinary symptoms. denies: Fever, Vomiting Exacerbated by: Denies Relieved by: Denies Similar symptoms previously: Yes Recently seen / treated by doctor: No - ROS ROS below otherwise negative: Yes Systems Reviewed and Negative: Yes All other systems reviewed and negative - CONSTITUTIONAL Constitutional: DENIES: Fever, Chills - GASTROINTESTINAL Gastrointestinal: DENIES: Abdominal Pain, Nausea, Patient vomiting - URINARY Urinary: REPORTS: Dysuria, Urgency, Frequency - REPRODUCTIVE Reproductive: DENIES: : - MUSCULOSKELETAL Musculoskeletal: DENIES: Back Pain - DERM Skin Color: Normal Skin Problems: None Past Medical History - General Information source: Patient - Social History Smoking Status: Never Smoker Frequency of alcohol use: None Drug Abuse: None Occupation: None Family History: CAD, CVA, Hyperlipidemia, Hypertension - Past Medical History Cardiac Medical History: Reports: Hx Hypertension - Does not want to take medication Renal/ Medical History: Denies: Hx Peritoneal Dialysis Psychiatric Medical History: Reports: Hx Depression Past Surgical History: Reports: Hx Section, Hx Tubal Ligation - Immunizations Immunizations up to date: Yes Hx Diphtheria, Pertussis, Tetanus Vaccination: Yes - 03/29/13 Vertical Provider Document - CONSTITUTIONAL Agree With Documented VS: Yes Exam Limitations: No Limitations General Appearance: WD/WN, No Apparent Distress - INFECTION CONTROL TRAVEL OUTSIDE OF THE [place] IN LAST 30 DAYS: No - HEENT HEENT: Atraumatic, Normocephalic - NECK Neck: Normal Inspection - RESPIRATORY Respiratory: Breath Sounds Normal, No Respiratory Distress - CARDIOVASCULAR Cardiovascular: Regular Rate, Regular Rhythm, No Murmur - GI/ABDOMEN Gastrointestinal: Abdomen Soft, Abdomen Non-Tender, No Organomegaly, Normal Bowel Sounds - BACK Back: Normal Inspection. negative: CVA Tenderness-Right, CVA Tenderness-Left - MUSCULOSKELETAL/EXTREMETIES Musculoskeletal/Extremeties: JUDY BROWN - NEURO Level of Consciousness: Awake, Alert, Appropriate Motor/Sensory: No Motor Deficit - DERM Integumentary: Warm, Dry, No Rash Course - Re-evaluation Re-evalutation: 10/08/17 02:55 Patient without any flank pain or abdominal tenderness, patient afebrile. No concern for pyelonephritis or obstructive uropathy at this time. Culture is pending. Discussed worsening signs or symptoms that patient should return immediately for. - Vital Signs Vital signs: Temp Pulse Resp BP Pulse Ox 99.1 F 113 H 18 154/139 H 97 10/08/17 01:18 10/08/17 01:18 10/08/17 01:18 10/08/17 01:18 10/08/17 01:18 - Laboratory Laboratory results interpreted by me: 10/08/17 02:55 Labs- Entire Visit 10/08/17 02:12 Urine Color YELLOW Urine Appearance CLOUDY Urine pH 6.0 Ur Specific [place] 1.024 Urine Protein 100 H Urine Glucose (UA) NEGATIVE Urine Ketones NEGATIVE Urine Blood LARGE H Urine Nitrite NEGATIVE Urine Bilirubin NEGATIVE Urine Urobilinogen 2.0 H Ur Leukocyte Esterase LARGE H Urine WBC (Auto) >182 Urine RBC (Auto) >182 Urine Bacteria (Auto) 1+ Squamous Epi Cells Auto 4 Urine Mucus (Auto) FEW Urine Ascorbic Acid NEGATIVE Urine HCG, Qual NEGATIVE Discharge - Discharge Clinical Impression: UTI (urinary tract infection) Qualifiers: Urinary tract infection type: site unspecified Hematuria presence: with hematuria Qualified Code(s): N39.0 - Urinary tract infection, site not specified Condition: Stable Disposition: HOME, SELF-CARE Instructions: Cephalexin ([facility]), Rocephin ([facility]), Urinary Anesthetic Agent ([facility]) , Urinary Tract Infection ([facility]) Additional Instructions: Return immediately for any new or worsening symptoms Followup with your primary care provider, call tomorrow to make a followup appointment Urine culture is pending, we will call if you need any different treatment Prescriptions: Cephalexin Monohydrate [Keflex 500 mg Capsule] 500 mg PO Q6H 7 Days capsule Phenazopyridine HCl [Pyridium 200 mg Tablet] 200 mg PO TID #15 tablet Referrals: KELLY MARTINEZ MD [Primary Care Provider] - Follow up as needed
[2017-10-08 02:39] LABS: APPEARANCE,URINE CLOUDY; BILIRUBIN,URINE NEGATIVE (NEGATIVE); COLOR,URINE YELLOW; GLUCOSE, URINE NEGATIVE (NEGATIVE); KETONES,URINE NEGATIVE (NEGATIVE); LEUKOCYTE ESTERASE,URINE LARGE (NEGATIVE); NITRITE,URINE NEGATIVE (NEGATIVE); PROTEIN,URINE 100 mg/dL (NEGATIVE); URINE SPECIFIC GRAVITY 1.024
[2017-10-08] MEDS ORDERED: LIDOCAINE 1% INJ-PF (10 MG/ML) 30 ML SDV INJ ONE (02:55)
[2017-10-08] MEDS ORDERED: CEFTRIAXONE INJ 1000 MG VIAL IM ONE (02:55)
[2017-10-08 03:12] VITALS: BP 142/99
== END 2017-10-08 03:20 | disposition home or self-care (01) ==
LOC: ER 01:13
DX: N39.0 Urinary tract infection, site not specified (principal); R39.198 Other difficulties with micturition; R20.0 Anesthesia of skin; R35.0 Frequency of micturition; R30.0 Dysuria; R39.15 Urgency of urination; I10 Essential (primary) hypertension
CPT/HCPCS: 99283; 96372; 87086; 81025; 87088; 81001; 87186; J3490; J0696

== ENCOUNTER 2018-02-28 05:27 | Emergency (ER) | payer MEDICAID ==
[2018-02-28 05:40] VITALS: BP 148/114
--- NOTE | 2018-02-28 06:01 | ER Document Report ---
ED General - General Chief Complaint: Sore Throat Stated Complaint: SWOLLEN THROAT Time Seen by Provider: 02/28/18 05:53 Notes: 1 day of sore throat severe worse with swallowing associated with no coughing. Feels like prior strep throat. No shortness of breath. Able to swallow her own saliva. History of morbid obesity noncompliant with CPAP. TRAVEL OUTSIDE OF THE [place] IN LAST 30 DAYS: No - Related Data Allergies/Adverse Reactions: peanut butter Allergy (Intermediate, Uncoded 08/25/17 22:02) Facial swelling tomato sauce Allergy (Intermediate, Uncoded 08/25/17 22:02) tonsil swelling Past Medical History - General Information source: Patient - Social History Smoking Status: Never Smoker Family History: CAD, CVA, Hyperlipidemia, Hypertension - Past Medical History Cardiac Medical History: Reports: Hx Hypertension - Does not want to take medication Renal/ Medical History: Denies: Hx Peritoneal Dialysis Psychiatric Medical History: Reports: Hx Depression Past Surgical History: Reports: Hx Section, Hx Tubal Ligation - Immunizations Immunizations up to date: Yes Hx Diphtheria, Pertussis, Tetanus Vaccination: Yes - 03/29/13 Review of Systems - Review of Systems Notes: REVIEW OF SYSTEMS GEN: Denies fever, chills, weight loss ENT: Throat denies nasal discharge, ear pain EYES: Denies blurry vision, eye pain, discharge CV: Denies chest pain, palpitations, edema RESP: Denies cough, shortness of breath, wheezing GI: Denies abdominal pain, nausea, vomiting, diarrhea MSK: Denies joint pain/swelling, edema, SKIN: Denies rash, skin lesions LYMPH: Swollen glands NEURO: Denies headache, focal weakness or numbness, dizziness PSYCH: Denies depression, suicidal or homicidal ideation PHYSICAL EXAMINATION General: No acute distress, well-nourished Head: Atraumatic, normocephalic ENT: Mouth normal, oropharynx moist, bilateral redness with mild exudates, no tonsillar enlargement Eyes: Conjunctiva normal, pupils equal, lids normal Neck: No JVD, supple, no guarding CVS: Normal rate, regular rhythm, no murmurs Resp: No resp distress, equal and normal breath sounds bilaterally GI: Nondistended, soft, no tenderness to palpation, no rebound or guarding Ext: No deformities, no edema, normal range of motion in upper and lower ext Back: No CVA or midline TTP Skin: No rash, warm Lymphatic: There are bilateral cervical lymphadeopathy noted Neuro: Awake, alert. Face symmetric. GCS 15. Physical Exam - Vital signs Vitals: Temp Pulse Resp BP Pulse Ox 99.1 F 106 H 16 148/114 H 100 02/28/18 05:27 02/28/18 05:27 02/28/18 05:02/28/18 05:02/28/18 05:27 Course - Re-evaluation Re-evalutation: 02/28/18 06:00 Recurrent streptococcal pharyngitis most likely based on clinical assessment. Prescribe Decadron and penicillin. No immediate threat to airway. No signs of pneumonia or sepsis. Recommended follow-up with primary care regarding referral to ENT, and compliance with CPAP. I have discussed with the patient there likely diagnosis, aftercare plan, follow -up plans and my usual and customary return precautions. They verbalized understanding of this. - Vital Signs Vital signs: Temp Pulse Resp BP Pulse Ox 99.1 F 106 H 16 148/114 H 100 02/28/18 05:27 02/28/18 05:27 02/28/18 05:27 02/28/18 05:27 02/28/18 05:27 Discharge - Discharge Clinical Impression: Pharyngitis Qualifiers: Pharyngitis/tonsillitis etiology: streptococcus Qualified Code(s): J02.0 - Streptococcal pharyngitis Condition: Good Disposition: HOME, SELF-CARE Instructions: Sore Throat ([facility]), Penicillin V K ([facility]) Additional Instructions: Please follow-up with your primary care doctor and request a referral to ear nose and throat for recurrent tonsillitis Prescriptions: Dexamethasone 12 mg PO ONCE PRN #1 tablet PRN Reason: Penicillin V Potassium [Penicillin Vk 500 mg Tablet] 500 mg PO BID #20 tablet Referrals: KELLY MARTINEZ MD [Primary Care Provider] - Follow up as needed
== END 2018-02-28 06:09 | disposition home or self-care (01) ==
LOC: ER 05:27
DX: J02.0 Streptococcal pharyngitis (principal); Z98.51 Tubal ligation status
CPT/HCPCS: 87070; 87880; 99283

== ENCOUNTER 2018-02-28 13:57 | Emergency (ER) | payer SELFPAY ==
[2018-02-28] MEDS ORDERED: DEXAMETHASONE SOD PHOS INJ 10 MG/1 ML VIAL IM ONE (15:08)
[2018-02-28] MEDS ORDERED: PENICILLIN G BENZATHINE 1.2 MILLION UNIT/2 ML DISP.SYRIN IM ONE (15:08)
--- NOTE | 2018-02-28 15:48 | ER Document Report ---
ED ENT - General Chief Complaint: Sore Throat Stated Complaint: THROAT SWELLING Time Seen by Provider: 02/28/18 15:03 Mode of Arrival: Ambulatory Information source: Patient, Relative Notes: Patient is a 27-year-old female comes emergency room for second time today. Patient was seen this morning in this ER somewhat at 5 AM by a provider that was on at [facility]. He evaluated her decided that she had a pharyngitis wrote her for penicillin and steroid and sent her home. They went to the pharmacy to get it filled patient is not capable of swallowing pills so the had the pharmacist cannot try to contact the provider who is already left the hospital. It was also noted that he had written for a wrong dosage of a steroid in the pharmacist wanted to get a hold of you for that as well. They were unable to verify or find the provider so patient is return to ER for possibility of receiving a shot instead of the medication oral. She has not declined in any way since the time she left but she is still having her sore throat. She has a long history of pharyngitis is and this feels similar to that. She is not having any difficulty swallowing her secretions she is maintaining that. She is also having no complaint of shortness of breath. TRAVEL OUTSIDE OF THE [place] IN LAST 30 DAYS: No - HPI Patient complains to provider of: Throat problem Onset: This morning Onset/Duration: Gradual, Worse Quality of pain: Achy, Sharp Severity: Moderate Pain Level: 3 Location of pain: Throat Associated symptoms: Chills, Fever Similar symptoms previously: Yes Recently seen / treated by doctor: Yes - Related Data Allergies/Adverse Reactions: peanut butter Allergy (Intermediate, Uncoded 08/25/17 22:02) Facial swelling tomato sauce Allergy (Intermediate, Uncoded 08/25/17 22:02) tonsil swelling Past Medical History - General Information source: Patient, Relative - Social History Smoking Status: Current Every Day Smoker Cigarette use (# per day): Yes Chew tobacco use (# tins/day): No Smoking Education Provided: Yes Frequency of alcohol use: None Drug Abuse: None Family History: Reviewed & Not Pertinent, CAD, CVA, Hyperlipidemia, Hypertension Patient has suicidal ideation: No Patient has homicidal ideation: No - Past Medical History Cardiac Medical History: Reports: Hx Hypertension - Does not want to take medication Pulmonary Medical History: Reports: Hx Asthma Renal/ Medical History: Denies: Hx Peritoneal Dialysis Psychiatric Medical History: Reports: Hx Depression Past Surgical History: Reports: Hx Section, Hx Tubal Ligation - Immunizations Immunizations up to date: Yes Hx Diphtheria, Pertussis, Tetanus Vaccination: Yes - 03/29/13 Review of Systems - Review of Systems Constitutional: No symptoms reported EENT: Difficulty swallowing, Throat swelling Cardiovascular: No symptoms reported Respiratory: No symptoms reported Gastrointestinal: No symptoms reported Genitourinary: No symptoms reported Female Genitourinary: No symptoms reported Musculoskeletal: No symptoms reported Skin: No symptoms reported Hematologic/Lymphatic: No symptoms reported Neurological/Psychological: No symptoms reported -: Yes All other systems reviewed and negative Physical Exam - Vital signs Vitals: Temp Pulse Resp BP Pulse Ox 99.2 F 114 H 16 149/106 H 98 02/28/18 14:06 02/28/18 14:06 02/28/18 14:06 02/28/18 14:06 02/28/18 14:06 Interpretation: Hypertensive - Notes Notes: Patient is a well-nourished well-developed morbidly obese female who is in no apparent distress. - General General appearance: Alert - HEENT Head: Normocephalic, Atraumatic Eyes: Normal Tympanic membrane: Normal Nasal: Normal Mouth/Lips: No: Angioedema, Caries, Dental fracture, Lesions Mucous membranes: Moist Pharynx: Erythema, Exudate. No: Peritonsillar abscess, Post nasal drainage, Retropharyngeal abscess, Tonsillar hypertrophy, Uvular edema, Potential airway comprom. Neck: Normal, Anterior cervical chain, Lymphadenopathy, Supple. No: Meningismus , Neck mass, Subcutaneous emphysema - Respiratory Respiratory status: No respiratory distress Chest status: Nontender Breath sounds: Normal. No: Rales, Rhonchi, Stridor, Wheezing Chest palpation: Normal - Cardiovascular Rhythm: Regular, Tachycardia Heart sounds: Normal auscultation Murmur: No - Neurological Neuro grossly intact: Yes Cognition: Normal Orientation: AAOx4 Golden Coma Scale Eye Opening: Spontaneous [place] Coma Scale Verbal: Oriented Golden Coma Scale Motor: Obeys Commands Golden Coma Scale Total: 15 Speech: Normal Course - Re-evaluation Re-evalutation: 02/28/18 15:50 I read less providers note for this morning. He did write for Pen-Vee K and for Decadron tablet 12 mg. I believe that that should have been 3 tablets of 4 mg total. And that is why the pharmacy had a problem. My physical exam patient shows basically as his dad no apparent distress she is handling her secretions difficulty seeing in the posterior pharynx but what I could see had bilateral tonsillar enlargement with some exudate. Uvula is midline encroachment was minimal at present she is swallowing her secretions fine she is also drinking a milkshake. I have agreed to go ahead and give her the Bicillin 1.2 million IM and I am giving her Decadron 10 mg I M as well. This was stopped from having to get the toes which she can swallow. She has a good history for this in the past and has been documented before so I believe treating her appropriately. - Vital Signs Vital signs: Temp Pulse Resp BP Pulse Ox 99.2 F 114 H 16 149/106 H 98 02/28/18 14:06 02/28/18 14:06 02/28/18 14:06 02/28/18 14:06 02/28/18 14:06 Discharge - Discharge Clinical Impression: Pharyngitis Qualifiers: Pharyngitis/tonsillitis etiology: unspecified etiology Qualified Code(s): J02.9 - Acute pharyngitis, unspecified Condition: Stable Disposition: HOME, SELF-CARE Instructions: Sore Throat ([facility]), Strep Throat ([facility]), Tonsillitis ([facility]) Additional Instructions: Home and rest. Since she got the shot she do not need the oral medications. I would still use warm salt water gargles. Cold milkshakes etc. Also talked your primary care provider about surgery since this is like the second to fourth time you have had it this year. Can you state you get 2-3 times a year. Should you have any problems return to ER for recheck. Primarily if you having difficulty swallowing her own secretions or getting short of breath please return Forms: Elevated Blood Pressure, Smoking Cessation Education Referrals: KELLY MARTINEZ MD [Primary Care Provider] - Follow up as needed
[2018-02-28 16:56] VITALS: BP 166/101
== END 2018-02-28 16:56 | disposition home or self-care (01) ==
LOC: ER 13:57
DX: J02.9 Acute pharyngitis, unspecified (principal); F17.210 Nicotine dependence, cigarettes, uncomplicated; I10 Essential (primary) hypertension
CPT/HCPCS: 99282; 96372; J0561; J1100

== ENCOUNTER 2018-03-04 18:50 | Emergency (ER) | payer SELFPAY ==
[2018-03-04 19:25] VITALS: BP 160/88
[2018-03-04] MEDS ORDERED: HYDROCODONE/ACETAMINOPHEN 5-325 MG (6 TAB/ER DISP) PO PRN (19:44)
[2018-03-04] MEDS ORDERED: AMOXICILLIN TRIHYDRATE 500 MG CAPSULE PO ONE (19:44)
--- NOTE | 2018-03-04 19:44 | ER Document Report ---
ED ENT - General Chief Complaint: Sore Throat Stated Complaint: SWOLLEN TONSILS Time Seen by Provider: 03/04/18 19:12 Mode of Arrival: Ambulatory Information source: Patient Notes: 24-year-old female presents to ED for complaint of sore throat swollen tonsils swelling to the neck and bad teeth. Patient states she was seen here on Saturday and given a penicillin and steroid shot and felt better for a few days but now it is back hurting. She states she knows she also has a several bad teeth the one on the right lower jaw #2 is the more painful. This tooth is very decayed. She states she also has an appointment with the dentist for . TRAVEL OUTSIDE OF THE [place] IN LAST 30 DAYS: No - HPI Patient complains to provider of: Dental problem, Throat problem Onset: Last week Onset/Duration: Intermittent Quality of pain: Sharp Severity: Severe Pain Level: 5 Context: Recent Illness Location of pain: Neck, Throat, Tooth Associated symptoms: Dental pain, Dental caries, Sinus drainage, Sore throat, Swollen glands Similar symptoms previously: Yes Recently seen / treated by doctor: Yes - Related Data Allergies/Adverse Reactions: peanut butter Allergy (Intermediate, Uncoded 08/25/17 22:02) Facial swelling tomato sauce Allergy (Intermediate, Uncoded 08/25/17 22:02) tonsil swelling Past Medical History - General Information source: Patient - Social History Smoking Status: Current Every Day Smoker Cigarette use (# per day): Yes - Daily Smoking Education Provided: Yes - 4 minutes Frequency of alcohol use: None Drug Abuse: None Lives with: Family Family History: Reviewed & Not Pertinent, CAD, CVA, Hyperlipidemia, Hypertension Patient has suicidal ideation: No Patient has homicidal ideation: No - Past Medical History Cardiac Medical History: Reports: Hx Hypertension - Does not want to take medication Pulmonary Medical History: Reports: Hx Asthma EENT Medical History: Reports: None Neurological Medical History: Reports: None Endocrine Medical History: Reports: None Renal/ Medical History: Reports: None Malignancy Medical History: Reports: None GI Medical History: Reports: None Musculoskeletal Medical History: Reports None Skin Medical History: Reports None Psychiatric Medical History: Reports: Hx Depression Traumatic Medical History: Reports: None Infectious Medical History: Reports: None Past Surgical History: Reports: Hx Section, Hx Tubal Ligation - Immunizations Immunizations up to date: Yes Hx Diphtheria, Pertussis, Tetanus Vaccination: Yes - 10/27/13 Review of Systems - Review of Systems Constitutional: No symptoms reported EENT: Throat pain, Dental problem, Other - Swollen lymph nodes with pain to the neck Cardiovascular: No symptoms reported Respiratory: No symptoms reported Gastrointestinal: No symptoms reported Genitourinary: No symptoms reported Female Genitourinary: No symptoms reported Musculoskeletal: No symptoms reported Skin: No symptoms reported Hematologic/Lymphatic: No symptoms reported Neurological/Psychological: No symptoms reported -: Yes All other systems reviewed and negative Physical Exam - Vital signs Vitals: Temp Pulse Resp BP Pulse Ox 98.2 F 116 H 16 148/108 H 98 03/04/18 19:02 03/04/18 19:02 03/04/18 19:02 03/04/18 19:02 03/04/18 19:02 Interpretation: Normal - General General appearance: Appears well, Alert - HEENT Head: Normocephalic, Atraumatic Eyes: Normal Pupils: PERRL Ears: Normal External canal: Normal Tympanic membrane: Normal Sinus: Normal Nasal: Swelling, Clear rhinorrhea Mouth/Lips: Caries Mucous membranes: Normal Pharynx: Post nasal drainage. No: Erythema, Exudate, Tonsillar hypertrophy, Uvular edema Neck: Anterior cervical chain - Respiratory Respiratory status: No respiratory distress Chest status: Nontender Breath sounds: Normal Chest palpation: Normal - Cardiovascular Rhythm: Regular Heart sounds: Normal auscultation Murmur: No - Abdominal Inspection: Normal Distension: No distension Bowel sounds: Normal Tenderness: Nontender Organomegaly: No organomegaly - Back Back: Normal, Nontender - Extremities General upper extremity: Normal inspection, Nontender, Normal color, Normal ROM , Normal temperature General lower extremity: Normal inspection, Nontender, Normal color, Normal ROM , Normal temperature, Normal weight bearing. No: Allie's sign - Neurological Neuro grossly intact: Yes Cognition: Normal Orientation: AAOx4 Libia Coma Scale Eye Opening: Spontaneous [place]ia Coma Scale Verbal: Oriented [place] Coma Scale Motor: Obeys Commands [place] Coma Scale Total: 15 Speech: Normal Motor strength normal: LUE, RUE, LLE, RLE Sensory: Normal - Psychological Associated symptoms: Normal affect, Normal mood - Skin Skin Temperature: Warm Skin Moisture: Dry Skin Color: Normal Course - Re-evaluation Re-evalutation: 03/04/18 21:27 Patient has a minor upper respiratory infection with a viral sore throat as well as an infected dental cavity to the right lower jaw with a dental abscess that was I indeed with an 18-gauge needle in the emergency room. Presentation is most consistent with likely an infected tooth. Airway is patent. Vitals within normal limits. Patient is able swallow without any difficulty. There is no significant facial swelling. No evidence of Mervin angina, apical abscess, or airway obstruction. Patient will be started on antibiotics. I've instructed to follow-up with dentistry as earliest ability for definitive management. At this time will discharge with return precautions and follow-up recommendations. Verbal discharge instructions given a the bedside and opportunity for questions given. Medication warnings reviewed. Patient is in agreement with this plan and has verbalized understanding of return precautions and the need for primary care follow-up in the next 24-72 hours. - Vital Signs Vital signs: Temp Pulse Resp BP Pulse Ox 98.2 F 105 H 18 160/88 H 99 03/04/18 19:02 03/04/18 19:24 03/04/18 19:24 03/04/18 19:24 03/04/18 19:24 Procedures - Incision and Drainage Right Lower jaw Time completed: 19:25 Type: Simple Anesthetic type: Other mL's of anesthetic: 0 Blade size: Other - 18-gauge needle Incision Method: Incision made with needle Amount/type of drainage: Large amount of purulent drainage Discharge - Discharge Clinical Impression: Pain due to dental caries, Sore throat (viral) Condition: Stable Disposition: HOME, SELF-CARE Additional Instructions: TOOTHACHE: Your pain is due to dental decay. The tooth must be repaired in order for you to feel better. You will, therefore, be referred to a dentist. We do not have dentists on the staff at [facility]. Severe swelling or drainage around a tooth usually means a dental abscess. This also requires evaluation and treatment by the dentist, but antibiotics may be prescribed while awaiting dental treatment. You should be rechecked immediately if you develop major swelling of the face, increasing pain, a lump in the jaw or gums, headache, difficulty swallowing, or fever. SORE THROAT: Sore throats may be caused by viruses, bacteria, or fungi. Most are due to a virus, and must get better on their own. Bacterial sore throats, particularly those due to "strep," need treatment with antibiotics. If an antibiotic is prescribed, be sure to take the medication for a full 10 days. Failure to take the antibiotic can result in complications such as rheumatic fever. Sometimes, an injection of antibiotics is given instead of pills or liquid. This single "shot" is equal in effectiveness to the oral medication. To relieve symptoms, take acetaminophen for pain. Sip clear liquids frequently, or eat popsicles or ice chips. Anesthetic sprays or lozenges may help. Make sure the air in the room is not too dry. Avoid using decongestants or antihistamines. Call the doctor if there is no improvement in two days, or if you have difficulty breathing, increasing throat pain, high fever, rash, or frequent vomiting. ORAL NARCOTIC MEDICATION: You have been given a prescription for pain control. This medication is a narcotic. It's best taken with food, as nausea can result if taken on an empty stomach. Don't operate machinery or drive within six hours of taking this medication. Do not combine this medicine with alcohol, or with any medication which can cause sedation (such as cold tablets or sleeping pills) unless you get permission from the physician. Narcotics tend to cause constipation. If possible, drink plenty of fluids and eat a diet high in fiber and fruits. Please be aware that prescription narcotics also have the potential for abuse. People become addicted to these medications because of the general sense of wellbeing that they induce. This feeling along with a significant reduction in tension, anxiety, and aggression provides a stimulating seductive quality to these drugs. Once your pain is under control, we encourage you to discard your unused narcotics. Amoxicillin Amoxicillin is a member of the penicillin family. It covers the germs likely to cause ear, bronchial, and urinary infections better than plain penicillin. Amoxicillin can be taken without regard to meals. Nausea after taking the medication is rare, but can occur. Diarrhea can occur, particularly in small children. Vaginal yeast infections and oral thrush in infants are also common. Contact your physician if these problems occur. Allergy to penicillins is common. If you have had an allergic reaction to any drug of the penicillin family, you should never take any other penicillin. Notify your doctor at once if you develop hives, itching, swelling, faintness, or shortness of breath. Less serious side effects can include nausea or diarrhea. Acetaminophen Acetaminophen may be taken for pain relief or fever control. It's much safer than aspirin, offering a wider range of "safe" dosages. It is safe during . Some brand names are Tylenol, Panadol, Datril, Anacin 3, Tempra, and Liquiprin. Acetaminophen can be repeated every four hours. The following are maximum recommended dosages: WEIGHT Dose Drops Elixir Chewable( 80mg) (LBS.) drprs=droppers tsp=teaspoon 6 40 mg .4 ml (1/2) 6-11 80 mg .8 ml (full) 1/2 tsp 1 tab 12-16 120 mg 1 1/2 drprs 3/4 tsp 1 1/2 tabs 17-23 160 mg 2 drprs 1 tsp 2 tabs 24-30 240 mg 3 drprs 1 1/2 tsp 3 tabs 30-35 320 mg 2 tsp 4 tabs 36-41 360 mg 2 1/4 tsp 4 1 /2 tabs 42-47 400 mg 2 1/2 tsp 5 tabs 48-53 480 mg 3 tsp 6 tabs 54-59 520 mg 3 1/4 tsp 6 1 /2 tabs 60-64 560 mg 3 1/2 tsp 7 tabs 65-70 600 mg 3 3/4 tsp 7 1 /2 tabs 71-76 640 mg 4 tsp 8 tabs 77-82 720 mg 4 1/2 tsp 9 tabs 83-88 800 mg 5 tsp 10 tabs >89 pounds or adults 650 mg to 900 mg Acetaminophen can be repeated every four hours. Maximum daily dose not to exceed 4000 mg. These maximum recommended dosages are slightly higher than the dosages written on the product container, but these dosages are very safe and well below the toxic dosage for acetaminophen. High Blood Pressure When your blood pressure was taken today it was elevated. Today's reading was . Pre-hypertension/Hypertension: The patient has been informed that they may have pre-hypertension or Hypertension based on a blood pressure reading in the emergency department. I recommend that the patient call the primary care provider listed on their discharge instructions or a physician of their choice this wee to arrange follow up for further evaluation of possible pre- hypertension or Hypertension. Sometimes, stress or illness causes a temporary elevation of your blood pressure. We suggest that you get your blood pressure measured three more times during the next few days to see if this is more than a temporary abnormality. If your blood pressure is greater than 150/90 on each occasion, you must have treatment. Some simple things you can do to help are: If you have blood pressure medicine but aren't using it regularly, start taking it again. Get some aerobic exercise for at least 20 minutes on a daily basis. (See your doctor before beginning a new exercise program.) Eat a low-fat diet. Lose excess weight. Avoid salty foods and avoid adding salt to any of the foods you eat. Avoid diet pills, decongestants, "energizing" herbs, and other medicines that elevate blood pressure. If left untreated, hypertension greatly enhances your risk for developing heart disease and strokes. Please don't ignore this problem. FOLLOW-UP CARE: You have been referred for follow-up care to the dentists listed below. Call the dentists office for an appointment as you were instructed or within the next two days. If you experience worsening or a significant change in your symptoms, notify the physician immediately or return to the Emergency Department at any time for re-evaluation. [facility] [address] [place], [place] Saturday mornings, by appointment [facility] [address] [place] [address] [facility] [address] [facility] [address] [facility] [address] [email or web address] [address] [place] [address] Saturday- 8:00am to 5:00 pm Will see patients from other [facility]. Charges based on income and family size and accepts Medicare, Medicaid, and Insurances Will pull molars [facility] [address] Hours of Operation 8:00 am - 4:30 pm weekdays The following dental offices accept Medicaid: [facility] Dr. Silva Dr. Crum Dr. Wolfe Dr. Hall Stephen Topete, Dilip, and Shyla oral surgery Dr. Steinberg ([place]) Dr. Tirado ([place]) [facility] Drs. Pham ([place]) Dr. Hitchcock ([place]) [facility] Dr. Macedo ([place]) Drs. Smith and ([place]) Medicaid Care Line Prescriptions: Amoxicillin Trihydrate [Amoxil 875 mg Tablet] 1 tab PO BID #20 tablet Forms: Elevated Blood Pressure, Smoking Cessation Education Referrals: KELLY MARTINEZ MD [Primary Care Provider] - Follow up as needed
== END 2018-03-04 20:05 | disposition home or self-care (01) ==
LOC: ER 18:50
DX: K02.9 Dental caries, unspecified (principal); J02.9 Acute pharyngitis, unspecified; K04.7 Periapical abscess without sinus; R22.1 Localized swelling, mass and lump, neck; F17.210 Nicotine dependence, cigarettes, uncomplicated
CPT/HCPCS: 87070; 87077; 87880; 99283

== ENCOUNTER 2018-05-01 12:44 | Emergency (ER) | payer SELFPAY ==
[2018-05-01 13:06] VITALS: BP 148/88
[2018-05-01] MEDS ORDERED: LIDOCAINE 5% (700 MG) TRANSDERMAL ADH..PATCH TP ONE (13:43)
[2018-05-01] MEDS ORDERED: KETOROLAC TROMETHAMINE 60 MG/2 ML SDV IM ONE (13:43)
[2018-05-01] MEDS ORDERED: METHOCARBAMOL 750 MG TABLET PO ONE (13:43)
--- NOTE | 2018-05-01 13:47 | ER Document Report ---
HPI - HPI Time Seen by Provider: 05/01/18 13:15 Pain Level: 5 Notes: Patient is a 27-year-old female who presents to the emergency department with low back pain that started 2 days ago. Denies any fall or injury. Does report that she does a lot of heavy lifting at work. She denies any dysuria or urinary urgency/frequency. Denies any fever. - REPRODUCTIVE Reproductive: DENIES: : Past Medical History - General Information source: Patient - Social History Smoking Status: Never Smoker Frequency of alcohol use: None Drug Abuse: None Family History: Reviewed & Not Pertinent, CAD, CVA, Hyperlipidemia, Hypertension - Past Medical History Cardiac Medical History: Reports: Hx Hypertension - Does not want to take medication Pulmonary Medical History: Reports: Hx Asthma Renal/ Medical History: Denies: Hx Peritoneal Dialysis Psychiatric Medical History: Reports: Hx Depression Past Surgical History: Reports: Hx Section, Hx Tubal Ligation - Immunizations Immunizations up to date: Yes Hx Diphtheria, Pertussis, Tetanus Vaccination: Yes - 03/29/13 Vertical Provider Document - CONSTITUTIONAL Notes: PHYSICAL EXAMINATION: GENERAL: Well-appearing, well-nourished and in no acute distress. HEAD: Atraumatic, normocephalic. EYES: Pupils equal round extraocular movements intact, conjunctiva are normal. ENT: Nares patent NECK: Normal range of motion LUNGS: No respiratory distress Musculoskeletal: Normal range of motion. No CVA tenderness. Bilateral lumbar paraspinous muscle tenderness., NEUROLOGICAL: Normal speech, normal gait. PSYCH: Normal mood, normal affect. SKIN: Warm, Dry, normal turgor, no rashes or lesions noted. - INFECTION CONTROL TRAVEL OUTSIDE OF THE [place] IN LAST 30 DAYS: No Course - Re-evaluation Re-evalutation: Examination and history are most consistent with Musculoskeletal strain. Patient will be treated withmuscle relaxers and anti-inflammatories discharged home in stable condition. - Vital Signs Vital signs: Temp Pulse Resp BP Pulse Ox 98.6 F 100 18 148/88 H 100 05/01/18 13:02 05/01/18 13:02 05/01/18 13:02 05/01/18 13:02 05/01/18 13:02 Discharge - Discharge Clinical Impression: Back pain Qualifiers: Back pain location: back pain in unspecified location Chronicity: acute Back pain laterality: unspecified Qualified Code(s): M54.9 - Dorsalgia, unspecified Condition: Stable Disposition: HOME, SELF-CARE Additional Instructions: LOW BACK PAIN: Three out of every four people will have an episode of disabling back pain during their lifetime. Most commonly the pain is due to straining of the muscles and ligaments in the low back. Usual treatment includes: (1) Rest on a firm surface. Avoid lying on your stomach. (2) Ice pack the painful area. After a few days, gentle heat may be used intermittently to relax the area, or ice packs can be continued. (3) Medication may be needed -- muscle relaxers and antiinflammatory medicines are commonly used. (4) As the back improves, exercises are prescribed to strengthen the back and abdominal muscles. Your doctor will advise you on the proper care for your back at each stage in your recovery. You may be better in a few days -- or healing may take several weeks. If new symptoms of a "herniated disc" (radiation of pain, numbness, or tingling down the back of the leg or weakness in the leg) occur, you should be re-examined. Further testing may be necessary. PAIN MEDICATION INJECTION: You have received an injection of a pain medication. You should experience significant pain relief within 45 minutes. If this injection was a narcotic -- it will impair your judgement, slow your reaction time and make you sleepy (as well as relieve your pain). Narcotics also can cause nausea. You should not drive, work with machinery, or perform any task requiring mental alertness until all effects of the medication are gone -- six to eight hours. Do not take any alcohol, or sedatives, and do not take any other medication without checking with your physician. MUSCLE RELAXERS: Muscle relaxing medications are usually prescribed for acute muscle spasm or injury to the neck and back. They are often combined with antiinflammatory pain medication for increased relief. You may stop the muscle relaxer when the pain and stiffness have improved. Start the medication again if spasms recur. Muscle relaxers may cause drowsiness, especially with the first dose. Do not operate machinery or drive while under the effects of the medication. Most muscle relaxers last up to 24 hours. Do not combine the medication with alcohol. ICE PACKS: Apply ice packs frequently against the painful area. Many different schedules are recommended, such as "20 minutes on, 20 minutes off" or "one hour ice, two hours rest." If you need to work, you may need to go longer between ice treatments. You should plan to have the area ice packed AT LEAST one fourth of the time. The ice should be applied over the wrap, tape, or splint, or over a layer of cloth -- not directly against the skin. Some ice bags have a built-in cloth and can be put directly on the skin. WARM PACKS: After approximately two days, apply gentle heat (such as a heating pad or hot water bottle) for about 20 to 30 minutes about every two hours -- at least four times daily. Warmth and elevation will help you make a more rapid recovery , and will ease the pain considerably. Do not use HOT heat, and never apply heat for longer than 30 minutes. The continuous heat can invisibly damage skin and muscles -- even when no burn is seen on the surface. Damaged muscles can make you MORE sore. FOLLOW-UP CARE: If you have been referred to a physician for follow-up care, call the physician s office for an appointment as you were instructed or within the next two days. If you experience worsening or a significant change in your symptoms, notify the physician immediately or return to the Emergency Department at any time for re-evaluation. Our usual recommendation for acute back pain is anti-inflammatory such as ibuprofen or Motrin with or without a muscle relaxer. Since you state that Dr. Martinez told you to avoid Motrin you can take acetaminophen instead. Take the muscle relaxer as directed. We placed a Lidoderm patch on your back today in the ER, if this seems to help you please purchase some [id number]. Prescriptions: Methocarbamol [Robaxin 750 mg Tablet] 750 mg PO ASDIR PRN #40 tablet PRN Reason: Forms: Return to Work Referrals: KELLY MARTINEZ MD [Primary Care Provider] - Follow up as needed
== END 2018-05-01 14:05 | disposition home or self-care (01) ==
LOC: ER 12:44
DX: M54.9 Dorsalgia, unspecified (principal); M54.5 Low back pain; X50.0XXA Overexertion from strenuous movement or load, initial encounter; I10 Essential (primary) hypertension; J45.909 Unspecified asthma, uncomplicated
CPT/HCPCS: 99283; 96372; J1885; J3490